=== PATIENT | male | born 1945 | race Caucasian/White ===

== ENCOUNTER 2016-11-08 22:28 | Emergency (ER) | payer MEDICARE, OTHER ==
--- NOTE | ~2016-11-08 | ER ---
PATIENT'S NAME: ASHISH DIETRICH [facility] AGE: 71 Y [address] ROOM: [place] [id number] LOCATION: ED ADMIT DATE: 11/08/2016 ER/Outpatient Report DISCHARGE DATE: 11/08/2016 FAMILY PHYSICIAN: Edilberto Newell MD ATTENDING PHYSICIAN: Ruth Cid HISTORY OF PRESENT ILLNESS: This is a 71-year-old male who presents with left nostril epistaxis. The patient says it has been bleeding for about an hour and 15 minutes at this time and was unable to control the bleeding so that is why he came in. He says that he was cauterized about [address] Zavala. He had gone into [facility] with the bleeding and they had put a packing in there and he had follow up with Dr. Zavala who has cauterized it. He says that he feels it in the back of his throat. He is spitting it up too. No other complaints at this time. He is not dizzy or lightheaded. He is not nauseous. No chest pain. No other complaints. PAST MEDICAL HISTORY: Includes history of nosebleeds, CHF, ifj-sywphtj-[id number] diabetes, COPD, on BiPAP at night, hypertension, arthritis, and spinal stenosis. SOCIAL HISTORY: He does not smoke, drink, or use any drugs. MEDICATIONS: Please see med list. ALLERGIES: NONE. REVIEW OF SYSTEMS: Reviewed by me and negative with the exception of those discussed in the HPI. PHYSICAL EXAMINATION: VITAL SIGNS: The patient is 5 feet, 11 inches, he weighs 161 kilos. His blood pressure is 195/82, heart rate 104, respiratory rate 18, temp 98.3, and sats are 95% on room air. GENERAL: The patient looks uncomfortable. He has an emesis bag and he is sort of clearing his throat and spitting blood into it. He is also holding his nostril and there is stream of blood from the left nostril, it is not gushing though. HEENT: No signs of head trauma, unable to assess where it is bleeding from as it is bleeding so briskly from the left nostril. There is no blood from the right nostril. He does not have blood from his eyes either. His lips, gums are within normal limits. Throat: He is able to see some blood at the back PATIENT'S NAME: ASHISH DIETRICH [facility] AGE: 71 Y [address] ROOM: [place], [place] [address] LOCATION: [facility] ADMIT DATE: 11/08/2016 ER/Outpatient Report DISCHARGE DATE: 11/08/2016 FAMILY PHYSICIAN: Edilberto Newell MD ATTENDING PHYSICIAN: Ruth Cid of his throat. CHEST: He has normal breath sounds; although, it is slightly diminished at the bases. No wheezing, rales, or rhonchi though. EMERGENCY ROOM COURSE: I had the patient blow his nose and then I put Afrin-soaked Rhino Rocket 7.5 cm into his left nostril and inflated it. The patient tolerated the procedure fairly well. We observed him for about an hour and the bleeding had stopped, his throat is clear, he is not losing from the front either. He is not on any anticoagulation. He feels well, besides being hypertensive at this time, his vital signs are all normal. He feels comfortable going home and following up with Dr. Zavala in 2 days. He understands reasons to come back to the ER sooner. IMPRESSION: Epistaxis. MD BASILIO SHIELDS/carlene /[id number] d: 11/09/16 0550 t: 11/10/16 1820, OUTPATIENT REPORT
== END 2016-11-08 23:53 | disposition disaster alternative care site (69) ==
LOC: GMED 22:28
PROC: 2Y41X5Z Packing of Nasal Region using Packing Material (ICD-10-PCS; principal; 2016-11-08)
DX: R04.0 Epistaxis (principal); E11.9 Type 2 diabetes mellitus without complications; J44.9 Chronic obstructive pulmonary disease, unspecified; I11.0 Hypertensive heart disease with heart failure; I50.9 Heart failure, unspecified; M19.90 Unspecified osteoarthritis, unspecified site; Z99.11 Dependence on respirator [ventilator] status; Z79.82 Long term (current) use of aspirin; Z79.899 Other long term (current) drug therapy; Z79.84 Long term (current) use of oral hypoglycemic drugs
CPT/HCPCS: A9270